=== PATIENT | male | born 1995 | race Caucasian/White ===

== ENCOUNTER 2024-10-24 08:04 | Outpatient (REF) | payer MEDICAID, SELFPAY ==
--- OUTSIDE RECORDS SUMMARY | 2024-10-25 08:09 | XMS_ITS | Clinical Summary ---
Author Organization [facility] Address [address] [place] [address] Phone Care Team Providers Care Layout Operator Name Role Phone Unavailable Primary Care Provider Unavailabl e Social History Tobacco Use Types Packs/Day Years Used Date Smoking Tobacco: Never Assessed Sex and Gender Information Value Date Recorded Sex Assigned at Not on file Legal Sex Male 3:06 PM EST Gender Identity Not on file Sexual Orientation Not on file Plan of Treatment Health Maintenance Due Date Last Done Comments HPV Vaccines (3 - Male 3-dose series) 05/02/2013 02/07/2013, 01/14/2012 Hepatitis C Screening 02/24/2022 Social Influencers of Health Screening 02/24/2022 COVID-19 Vaccine ( season) 2023 Depression Screening 03/28/2024 Influenza Vaccine (#1) 2024 02/03/2009 DTaP,Tdap,and Td Vaccines (8 - Td or Tdap) 03/19/2027 03/19/2017, 01/31/2010, 01/11/2005, Additional history exists HIB Vaccines Completed 02/14/1997, 05/27, 04/16/1996, Additional history exists IPV Vaccines Completed 02/05/2000, 05/27, 04/16/1996, Additional history exists Varicella Vaccines Completed 02/03/2009, 04/16/1997 MMR Vaccines Completed 01/14/2012, 12/27, 02/14/1997 Meningococcal ACWY Vaccine Completed 02/07/2013, Hepatitis B Vaccines Completed 11/07/2017, 10/04/2017, 06/14/1996, Additional history exists HIV Screening Completed 09/24/2021 Hepatitis A Vaccines Aged Out No long er eligible based on patient's age to complete this topic Meningococcal B Vaccine Aged Out No l onger eligible based on patient's age to complete this topic Pneumococcal Vaccine: Pediatrics (0 to 5 Years) and At-Risk Patients (6 to 49 Years) Aged Out No longer eligible based on patient's age to complete this topic RSV Immunization Patients Under 20 months Aged Out No longer eligible based on patient's age to complete this topic
--- OUTSIDE RECORDS SUMMARY | 2024-10-25 08:09 | XMS_ITS | Encounter Summary ---
Author Organization [employer] Address [address] [place] [address] Care Team Providers Care Can Marker Name Role Phone Bernice Ortiz MD Primary Care Provide r Reason for Visit * Reason Onset Date Comments ER Follow-up 06/09/2023 Encounter Details Date Type Department Care Team ([facility] st Contact Info) Description 06/09/2023 Telephone [facility] [address] [place], [place] [phone] Bernice Ortiz MD [address] [place], [place] [phone] ER Follow-up Social History Tobacco Use Types Packs/Day Years Used Date Smoking Tobacco: Never Assessed Housing Stability Answer Date Recorded What is your housing situation today? I have lise kee 01/31/[address] you li ve. Do you have problems with any of the following? None of the above 01/31/2023 Food Insecurity Answer Date Recorded Within the past 12 months, y ou worried that your food would run out before you got money to buy more: Never True 01/31/2023 Within the past 12 months,th e food you bought just didn't last and you didn't have enough money to get more: Never True 08/2022 Transportation Answer Date Recorded In the past 12 months, has l ack of transportation kept you from medical appts, meetings, work or from getting things needed for daily living? No 01/31/2023 Utilities Answer Date Recorded In the past 12 months, has t he electric, gas, oil or water company threatened to shut off services in your home? No 01/31/2023 Sex and Gender Information Value Date Recorded Sex Assigned at Male 01/25/2022 10:24 AM EDT Legal Sex Male 10:24 AM EDT Gender Identity Male 01/25/2022 10:24 AM EDT Sexual Orientation Don't know 01/25/2022 10 :24 AM EDT documented as of this encounter Miscellaneous Notes * Telephone Encounter - Sheila Mccullough RN - 06/09/2023 11:21 AM EDT called pt to triage, spoke to pt. pt states seen [facility] ER on 05/26 and again at [facility] on 05/30 and 06/06. pt diagnosed with Parotitis and salivary stones which were treated with a full course of antibiotics and steroids. pt states swelling and pain are not getting better and pt was recommended to follow up with PCP office and seek a referral for ENT for further treatment. given appt Tuesdaywith red team provider at 11:45 for exam, recheck, and follow up as needed. advised to follow ER discharge instructions and call back as needed. pt understands and agrees with plan. ER records from 05/30 and 06/06 are in the chart for review. will task to clinical coordinators for the ER records of 05/26. pt understands and agrees with plan. insurance verified. Protocol Used: Face Swelling (Adult) Protocol-Based Disposition: See in Office or Video Visit within 3 Days Video visit offer not recorded Positive Triage Question: * Mild face swelling (puffiness) and persists > 3 days * All higher-acuity triage questions were negative Care Advice Discussed: * Reassurance and Education - Mild Face Swelling * Antihistamine Medicines for Itching or Swelling * Reasons To Call Back - Swelling persists over 3 days - Swelling becomes red or painful to the touch - You become worse * Telephone Encounter - Joselyn Mariscal - 06/09/2023 10:37 AM EDT Patient calling to report ED visit on : Date: 05/26 05/31 06/06 Hospital: [facility] Seen for: Swelling in face and Glands Patient advised will forward to team nurse for follow up. Symptoms: Face Swelling, Headache, Earache Outcome: Schedule a same-day appointment or talk to a nurse or provider today Reason: Caller denied all higher acuity questions The caller accepted this outcome documented in this encounter Plan of Treatment Not on file documented as of this encounter Visit Diagnoses Not on filedocumented in this encounter Care Teams Can Marker Relationship Specialty Start Date End Date Bernice Ortiz MD [address] [place] [id number] PCP - General Family Medicine 10/19/19 documented as of this encounter
== END 2024-10-24 08:05 | disposition home or self-care (01) ==
LOC: HO.HOSX 08:04
PROVIDERS: Visit Provider Physician Assistant
DX: Z13.89 Encounter for screening for other disorder (principal)